=== PATIENT | female | born 1970 | race Caucasian/White ===

== ENCOUNTER 2024-01-24 22:10 | Emergency (ER) | payer OTHER, SELFPAY ==
[2024-01-24 22:11] VITALS: BP 135/90
--- NOTE | 2024-01-24 22:29 | ED.GENMED ---
Addendum entered and electronically signed by Florentino Ochoa PA-C 01/31/24 07:10:
Pertussis IgG antibodies elevated IgM antibodies were within normal limits. Patient started on Zithromax. No indication for any intervention at this time
Original Note:
History of Present Illness
General
Chief Complaint: Cough
Source: patient
Exam Limitations: none
Time Seen by Provider: 01/24/24 22:21
History of Present Illness
History of Present Illness:
See MDM
Past History
Past History
ED Past Medical History: Asthma
ED Past Surgical History: None
Social History
Tobacco: Non-smoker
Alcohol: None
Phy Exam
Physical Exam
Physical Exam:
See MDM
Course
Orders/Labs/Results
Orders:
Orders
01/24/24 22:22
Tetanus/Diphth/Acelpertussis [Adacel] 0.5 ml IM .ONCE ONE
01/24/24 22:23
CR Chest - 2 Views Urgent
Comment:
Reason For Exam: cough
01/24/24 22:28
Azithromycin [Zithromax] 500 mg PO NOW STA
Dexamethasone Pf [Decadron] 10 mg PO NOW STA
Ipratropium/Albuterol Sulfate [Duoneb] 3 ml INH R NOW ONE
01/24/24 23:14
Bordetella Pertussis IgA,G,M [S] Urgent
COVID-19 Antigen Urgent
Source: Nasal Swab
Vital Signs
Initial and Last Documented VS:
Initial Vital Signs
Temp Pulse Resp BP Pulse Ox
98.5 F 94 22 135/90 96
01/24/24 22:11 01/24/24 22:11 01/24/24 22:11 01/24/24 22:11 01/24/24 22:11
Last Documented Vital Signs
Temp Pulse Resp BP Pulse Ox
98.5 F 94 22 135/90 97
01/24/24 22:11 01/24/24 22:11 01/24/24 22:11 01/24/24 22:11 01/24/24 23:00
MDM/Problems Addressed
Differential Diagnosis Includes:
HPI and MDM Narrative:
53-year-old female presenting with persistent cough for the past 2 weeks. Patient recently returned from a trip from [place] where she states many of her constitution party came back sick as well. She has been using her albuterol inhaler more than normal. She
has a longstanding history of asthma. Patient recently found out that a close contact has been diagnosed with pertussis. Patient states she has had multiple episodes of persistent coughing throughout the day. Given her history, will update Tdap.
Will start azithromycin with presumed pertussis. Will obtain chest x-ray and start steroids
Physical exam
General: Well appearing and non-toxic
HEENT: protecting airway
Neck: appears supple
CV: No evidence of cyanosis
Resp: No accessory muscle use. No significant wheezing noted. Prolonged expiratory phase. Bronchospastic cough
Abd: Non-distended
Extremities: No deformities
Neuro: alert
Psych: Normal affect
Skin: Intact
Problems Addressed including Acute and Chronic Conditions affecting care:
1. URI
Acuity: acute
Prognosis: stable
Details: Potentially in the setting of pertussis. Will start azithromycin. Will update Tdap and obtain chest x-ray
Updates
Chest x-ray clear. COVID-negative. On reassessment, patient feeling much better and feels comfortable going home
Differential Diagnosis (but not limited to): Pertussis, viral URI, pneumonia, COVID, asthma exacerbation
Testing considered: EKG
Drug therapy (if applicable): OTC meds, please see d/c instruction regarding Rx drugs
Amount and/or Complexity of Data Reviewed
Clinical info obtained from: Patient
External data reviewed: N/A
Labs I independently reviewed (but not limited to): COVID-negative
Radiology: X-ray independently reviewed: Chest x-ray clear
Pulse Ox: not hypoxic
EKG independently reviewed: N/A
[employer] Intelligence [employer] Chief: N/A
Critical Care: N/A
Risk of Complication:
Social Determinants of health: Good social support
Discussed with other providers: N/A
Escalation of Care includes Admit/Obs: After being observed in the Emergency Department, pt stable for discharge.
Occasional wrong word or 'sound a like' substitutions may have occurred due to the inherent limitations of voice recognition software. Read the chart carefully and recognize, using context, where substitutions have occurred.
*Critical Care Note
Total Time (30-74mins, 75-104mins- exclusive of procedures): Not Applicable
ED Attending Note
-
Portions of this chart may have been created with voice recognition software.� Occasional wrong word or��sound alike� substitutions may have occurred due to the inherent limitations of voice recognition software.
Discharge Plan
Departure
Patient Disposition: Home (Routine Discharge)
Date of Disposition: 01/25/24
Time of Disposition: 00:06
Patient with high blood pressure during this ER visit?: No
Discharge Problem:
Bronchitis
Instructions: Acute Bronchitis, Adult (DC)
Prescriptions:
New
azithromycin [Zithromax] 250 mg Tablet
250 mg PO DAILY Qty: 4 0RF
prednisone 20 mg tablet
40 mg PO DAILY Qty: 10 0RF
Referrals:
Sakina Lemus MD [Family Provider] -
Activity Restrictions/Additional Instructions:
Please return for any worsening symptoms.
You may return at any time if you have further concerns.
Please follow up with your doctor at the first available appointment, preferably this week.
Thank you for choosing [facility].
Interventions
Interventions:
*Risk Screen - Suicide Last Done: 01/24/24 22:11
*Neglect/Abuse Screening Last Done: 01/24/24 22:11
ED- Pulmonary Assessment Last Done: 01/24/24 23:00
Discharge Date and Time
Print Language: INDIAN
[2024-01-24] MEDS: ZITHROMAX 500 MG PO (22:44)
[2024-01-24] MEDS: DECADRON 10 MG PO (22:45)
[2024-01-24] MEDS: ADACEL 0.5 ML IM (22:46)
[2024-01-24] MEDS: DUONEB 3 ML INH (22:47)
[2024-01-24 23:53] LABS: COVID-19 Antigen Negative (Negative)
[2024-01-25 00:09] VITALS: BP 111/70
[2024-01-25 00:18] VITALS: BP 111/70
[2024-01-27 13:13] LABS: Bordetella Pertussis Ab, IgA 0.4 IV (<=1.1); Bordetella Pertussis Ab, IgG 2.58 IV (<=1.04); Bordetella Pertussis Ab, IgM 0.3 IV (<=1.1)
[2024-01-30 07:10] LABS: B. Pertussis, IgG IB FHA Positive; B. Pertussis, IgG IB PT Positive; B. Pertussis, IgG IB PT100 Equivocal
== END 2024-01-25 00:20 | disposition home or self-care (01) ==
LOC: EMR 22:10
PROVIDERS: EMERGENCY PHYSICIAN Student in an Organized Health Care Education/Training Program; FAMILY PHYSICIAN Family Medicine
DX: J20.9 Acute bronchitis, unspecified (principal); Z20.89 Contact with and (suspected) exposure to other communicable diseases; Z23 Encounter for immunization; Z11.52 Encounter for screening for COVID-19; J45.909 Unspecified asthma, uncomplicated
CPT/HCPCS: 99283; 94640; 90471; 71046; 86615; 87811; 90715